=== PATIENT | male | born 1965 | race Caucasian/White ===

== ENCOUNTER → 2022-06-22 09:35 | Outpatient (CLI) | payer OTHER, MEDICAID, SELFPAY ==
--- NOTE | 2022-06-22 09:38 | DI.CT.S_ITS ---
PROCEDURE: CT SINUS SCREEN WO CON INDICATIONS: Chronic pansinusitis TECHNIQUE: Noncontrast 3.0 mm axial images acquired from the frontal sinuses to the mid-sella, with coronal and sagittal reformats. For radiation dose reduction, the following was used: automated exposure control, adjustment of mA and/or kV according to patient size. COMPARISON: None. FINDINGS: Image quality: Excellent. Maxillary Sinuses: No bony remodeling or destruction. Sinuses are clear. Ethmoid Air Cells: No bony remodeling or destruction. Sinuses are clear. Sphenoid Sinuses: No bony remodeling or destruction. Sinuses are clear. Frontal Sinuses: No bony remodeling or destruction. Sinuses are clear. Ostiomeatal Complexes: Ostiomeatal complexes are patent. No Deena cells. Miscellaneous: Visualized intra-orbital contents are normal. No vi bullosa or paradoxical turbinate curvature. Osseous nasal septal bowing to the left IMPRESSION: Leftward nasal septal deviation Approved by: Scott Alford M.D. on 06/22/2022 at 9:38
== END ==
PROVIDERS: Referring Provider Otolaryngology; Visit Provider Otolaryngology
DX: J32.4 Chronic pansinusitis (principal); J34.89 Other specified disorders of nose and nasal sinuses; G44.89 Other headache syndrome
CPT/HCPCS: 70486

== ENCOUNTER 2022-08-26 13:00 | Emergency (ER) | payer OTHER, MEDICAID, SELFPAY ==
[2022-08-26 13:30] VITALS: BP 127/76; PULSE 85; RESP 15; TEMP 36.2; O2SAT 99; BMI 28.3
[2022-08-26 14:17] LABS: COVID-19 CEPHEID 4-PLEX PCR Negative (Negative); Influenza A - CEPHEID Flu A NEGATIVE (NEGATIVE); Influenza B - CEPHEID Flu B NEGATIVE (NEGATIVE); Respiratory Syncytial Virus Negative (Negative)
--- NOTE | 2022-08-26 14:52 | ED_ITS ---
HPI - URI/Sore Throat <Primo Lan PA-C - Last Filed: 08/26/22 14:58> General Chief Complaint: Upper Respiratory Symptoms Stated Complaint: cough can't get rid off T-14 Time Seen by Provider: 08/26/22 14:12 Source: patient Mode of arrival: Ambulatory History of Present Illness HPI Narrative: 57-year-old male with past medical history asthma presents to the ED with 2 weeks of persistent cough. Patient denies fever, chills, chest pain, shortness of breath, nausea, vomiting, abdominal pain, dysuria, lightheadedness, dizziness, syncope.? Patient states that her symptoms started as a upper respiratory infection 2 weeks ago, and she is still left with this residual cough that is tiring him out. Patient also endorses intermittent wheezing for which he has been using his albuterol inhaler. Related Data Previous Rx's Medication Instructions Recorded benzonatate 200 mg capsule 200 mg PO TID PRN cough #30 caps 08/26/22 Allergies Allergy/AdvReac Type Severity Reaction Status Date / Time No Known Drug Allergies Allergy Verified 08/26/22 13:30 Review of Systems <Primo Lan PA-C - Last Filed: 08/26/22 14:58> Review of Systems ROS Unobtainable: All systems reviewed & are unremarkable except as noted in HPI and below Constitutional Constitutional: Denies chills, Denies fatigue, Denies fever(s), Denies frequent falls, Denies lethargy and Denies weakness Eyes Eyes: Denies change in vision, Denies eye discharge, Denies irritation and Denies loss of vision ENT Ears, Nose, Mouth, and Throat: Denies change in voice, Denies dizziness, Denies neck pain, Denies sore throat and Denies throat swelling Cardiovascular Cardiovascular: Denies chest pain, Denies irregular heart rhythm, Denies lightheadedness, Denies palpitations, Denies dyspnea, Denies dyspnea on exertion and Denies orthopnea Respiratory Respiratory: Reports cough, Denies dyspnea, Denies dyspnea on exertion and Denies wheezing Gastrointestinal Gastrointestinal: Denies abdominal pain, Denies change in bowel habits, Denies diarrhea, Denies nausea and Denies vomiting Genitourinary Genitourinary: Denies hematuria, Denies flank pain, Denies urinary incontinence and Denies urinary urgency Musculoskeletal Musculoskeletal: Denies back pain, Denies muscle weakness, Denies neck pain, Denies numbness and Denies tingling Integumentary/Breasts Skin/Breast: Denies pruritus, Denies erythema, Denies rash and Denies wounds Neurologic Neurologic: Denies behavioral changes, Denies confusion, Denies dizziness, Denies frequent falls, Denies loss of vision, Denies numbness, Denies tingling and Denies weakness Psychiatric Psychiatric: Denies anxiety, Denies behavioral changes, Denies confusion, Denies depression, Denies homicidal ideation and Denies suicidal ideation Endocrine Endocrine: Denies fatigue, Denies flushing and Denies palpitations Hematologic/Lymphatic Hematologic/Lymphatic: Denies easy bruising Allergic/Immunologic Allergic/Immunologic: Denies urticaria, Denies throat swelling and Denies wheezing Patient History <Primo Lan PA-C - Last Filed: 08/26/22 14:58> Social History Smoking Status: Unknown if ever smoked Smoking Status: Unknown if ever smoked alcohol intake frequency: 0-2 drinks per day Substance Use Type: marijuana Exam <Primo Lan PA-C - Last Filed: 08/26/22 14:58> Narrative Exam Narrative: General:?cooperative, healthy appearing and comfortable [facility] Head:?normal to inspection Ears:?hearing grossly normal bilaterally Nose:?external nose normal Face and sinus:?normal facial exam and sinuses nontender Mouth:?oral mucosae normal Throat:?posterior oropharynx normal Eyes General:?appearance normal, both eyes and all related structures Neck Neck:?normal visual inspection and no lymphadenopathy noted Resp Effort & Inspection:?normal respiratory effort Auscultation:?clear to auscultation bilaterally Cardio Rate:?regular rate Rhythm:?regular rhythm Neuro General:?patient alert, patient awake and patient oriented x3 Initial Vital Signs Initial Vital Signs: Vital Signs Temperature 97.2 F L 08/26/22 13:30 Pulse Rate 85 08/26/22 13:30 Respiratory Rate 15 08/26/22 13:30 Blood Pressure 127/76 08/26/22 13:30 Pulse Oximetry 99 08/26/22 13:30 Oxygen Delivery Method Room Air 08/26/22 13:30 <Carmen Lilly DO - Last Filed: 08/28/22 07:26> Initial Vital Signs Initial Vital Signs: Vital Signs Temperature 97.2 F L 08/26/22 13:30 Pulse Rate 85 08/26/22 13:30 Respiratory Rate 15 08/26/22 13:30 Blood Pressure 127/76 08/26/22 13:30 Pulse Oximetry 99 08/26/22 13:30 Oxygen Delivery Method Room Air 08/26/22 13:30 Course <Primo Lan PA-C - Last Filed: 08/26/22 14:58> Orders Ordered: ED Orders 08/26/22 13:31 Covid-19 + FLU A/B + RSV - PCR Stat Vital Signs Vital signs: Vital Signs - 8 hr 08/26/22 13:30 Temperature 97.2 F L Pulse Rate 85 Respiratory Rate 15 Blood Pressure 127/76 Pulse Oximetry 99 Oxygen Delivery Method Room Air <Carmen Lilly DO - Last Filed: 08/28/22 07:26> Orders Ordered: ED Orders 08/26/22 13:31 Covid-19 + FLU A/B + RSV - PCR Stat Vital Signs Vital signs: Vital Signs - 8 hr 08/26/22 13:30 Temperature 97.2 F L Pulse Rate 85 Respiratory Rate 15 Blood Pressure 127/76 Pulse Oximetry 99 Oxygen Delivery Method Room Air MDM - URI/Sore Throat <Primo Lan PA-C - Last Filed: 08/26/22 14:58> Lab Data Labs: Lab Results 08/26/22 Range/Units 13:31 SARS-CoV-2 (PCR) Negative (Negative) Influenza A (RT-PCR) Flu a negative (NEGATIVE) Influenza B (RT-PCR) Flu b negative (NEGATIVE) RSV (PCR) Negative (Negative) MDM Narrative Medical decision making narrative: 57-year-old male with past medical history asthma presents to the ED with 2 weeks of persistent cough. Physical exam is reassuring, lungs are clear to auscultation bilaterally, vitals within normal limits. Unlikely pneumonia. More likely acute bronchitis. Will prescribe Tessalon Perles for cough. ED return precautions were discussed with patient. Patient verbalized understanding. <Carmen Lilly DO - Last Filed: 08/28/22 07:26> Lab Data Labs: Lab Results 08/26/22 Range/Units 13:31 SARS-CoV-2 (PCR) Negative (Negative) Influenza A (RT-PCR) Flu a negative (NEGATIVE) Influenza B (RT-PCR) Flu b negative (NEGATIVE) RSV (PCR) Negative (Negative) Discharge Plan Departure Patient Disposition: Home Clinical Impression: Bronchitis Instructions: Acute Bronchitis Activity Restrictions/Additional Instructions: You were evaluated in the ED today for a persistent cough. Your physical exam was reassuring, your lungs were clear of rattles or wheezes. Your symptoms are likely due to acute bronchitis, which is a persistent cough after a upper respiratory infection that can last for 3-4 weeks. You have been prescribed Tessalon Perles for the cough. You may also take other [id number] cough medications along with it. Continue good hydration. Return to the ED if your symptoms worsen, you develop fever, chills, fatigue. Prescriptions: New benzonatate 200 mg capsule 200 mg PO TID PRN (Reason: cough) Qty: 30 0RF Referrals: Gentry Walls MD [Primary Care Provider] - Stand Alone Forms: Patient Portal/API <Carmen Lilly DO - Last Filed: 08/28/22 07:26> Cosign ED Attending Vidaature Attestation: I was immediately available in the department for consultation. Documentation has been reviewed.
== END 2022-08-26 15:04 | disposition home or self-care (01) ==
PROVIDERS: Emergency Medicine; Emergency Provider Student in an Organized Health Care Education/Training Program; PCP Family Medicine
DX: J20.9 Acute bronchitis, unspecified (principal); Z20.822 Contact with and (suspected) exposure to COVID-19
CPT/HCPCS: 0241U; 99281; 99282

== ENCOUNTER 2022-10-03 10:47 | Day surgery (SDC) | payer OTHER, MEDICAID, SELFPAY ==
[2022-09-27 15:05] VITALS: BMI 29.1
[2022-10-03] VITALS (7 sets, daily range): BP systolic 108–133; BP diastolic 68–88; PULSE 85–91; RESP 12–16; TEMP 36.3–36.6; O2SAT 91–96; BMI 29.1
[2022-10-03] MEDS: OXYMETAZOLINE NASAL SPRAY 15 ML 2 SPRAYS NASAL ×2 (11:30→13:50)
[2022-10-03] MEDS: LACTATED RINGERS 1,000 ML 42 ML IV ×2 (11:56→13:50)
--- NOTE | 2022-10-03 13:03 | PM.PREOP ---
Pre-operative Note Interval Note History & Physical reviewed/Exam performed by Physician: Yes Changes to H&P: No
--- NOTE | 2022-10-03 13:04 | P.HP_ITS ---
History of Present Illness History of Present Illness Date Patient Seen: 10/03/22 Time Patient Seen: 13:04 Chief complaint: Septoplasty and Turbinate Reduction Narrative: 57-year-old male last seen in clinic 07/30/2022 presents for septoplasty and bilateral inferior turbinate reduction under general anesthesia. He has a known 3 to 4+ left septal deviation with a normal sinus CT 06/12/2022. No interval health changes, wishes to proceed. [facility] Medical History Asthma Deviated nasal septum Nasal obstruction Nasal turbinate hypertrophy Surgical History Hx of hand surgery (2021) Hx of shoulder surgery (2020) Hx of tonsillectomy Hx of tympanostomy tubes Social History household members: spouse Smoking Status: Former smoker alcohol intake: current Meds Home Medications and Allergies Home Medications Medication Instructions Recorded Confirmed Type albuterol sulfate 90 mcg/actuation 2 puff inhalation QID PRN 09/27/22 10/03/22 History aerosol inhaler Shortness Of Breath dextroamphetamine-amphetamine 20 20 mg PO BID 09/27/22 10/03/22 History mg tablet (Adderall) Allergies Allergy/AdvReac Type Severity Reaction Status Date / Time No Known Drug Allergies Allergy Verified 10/03/22 11:28 Review of Systems Review of Systems Narrative: Negative except as listed in the HPI Exam Vital Signs (past 8 hours): - 10/03/22 11:35 Temperature 97.3 F L Pulse Rate 86 Respiratory Rate 16 Blood Pressure 133/88 Pulse Oximetry 96 Oxygen Delivery Method Room Air Oxygen Delivery Method Room Air Narrative Exam Narrative: Well-developed well-nourished, heart regular rate and rhythm without murmur, lungs clear to auscultation bilaterally Assessment & Plan Assessment & Plan narrative: Assessment: Nasal airway obstruction, septal deviation, inferior turbinate hypertrophy Plan: Following discussion of the material risks benefits complications and alternatives, the patient elected to proceed.
--- NOTE | 2022-10-03 13:05 | PM.OP.1 ---
Operative Date/Time/Diagnoses Date of procedure: 10/03/22 Time of procedure: 15:06 Pre-op diagnosis: Nasal airway obstruction, septal deviation, inferior turbinate hypertrophy Post-op diagnosis: same Procedure & Clinicians Procedure: 1. Septoplasty 2. Bilateral inferior turbinate reduction via intramural cautery Same procedure as scheduled: Yes Indications: 57 Year old with the above diagnoses incompletely managed with medical therapy presents for the above procedure. Following discussion of the material risks benefits complications and alternatives, the parents elected to proceed. Surgeon: Gaurav Michael Click Yes if Unassisted: Yes Anesthesia Type: General and Local Operative Notes Findings: 3 to 4+ left septal deviation, bony and cartilaginous, likely remote fracture with calcified cartilage and duplication in areas, difficult dissection. Perforation LEFT mid superior, small right low anterior, not contiguous. [id number]-[id number]-left inferior turbinate hypertrophy Estimated Blood Loss (mL): 30 Procedure in detail: Following identification and confirmation of consent as well as preoperative Afrin nasal spray, the patient was brought to the operating room suite and placed in the supine position. General endotracheal anesthesia was administered. I infiltrated the septum widely bilaterally with 2% lidocaine 1 100,000 epinephrine followed by temporary packing with cotton with Afrin and 4% lidocaine. Following sterile prep and drape, the packing was removed and I performed a right cass-transfixion incision, elevated the right mucoperichondrial and mucoperiosteal flap, difficult due to factors above. I disarticulated near the bony/cartilaginous junction and elevated the left mucoperiosteal flap. Deviated portions of the perpendicular plate of the ethmoid and vomer were resected. The residual quadrilateral cartilage was further straightened by trimming it inferiorly as well as reducing the maxillary crest. A 2 mm strip of cartilage paralleling the residual 1 cm dorsal and caudal strut was resected to further straighten the quadrilateral cartilage. The hemitransfixion incision was closed with interrupted 5 0 chromic followed by a running 4 0 plain gut mattress suture to reapproximate the septal flaps. At case completion, 20/1000th of an inch silastic splints were placed bilaterally, sutured anteriorly with a single 4 0 nylon. The head of each inferior turbinate had been previously infiltrated with additional local anesthetic and a 25 gauge spinal needle was used to impale the length of the turbinate, with cautery on a setting of 15 activated on slow withdrawal over 2 passes. The turbinates were then outfractured. The procedure completed, sponge and needle counts were correct and the patient was extubated in the operating room and taken to recovery room in stable condition without known complication. Complications: none Post-operative Condition: stable Disposition: same day surgery Plan for aftercare: Nasal saline every hour while awake, begin irrigations t.i.d. tomorrow if desired. Polysporin to the nostrils at all times, Tylenol alternating with Advil for pain control, oxycodone for breakthrough pain. Elevate head of bed, no nose blowing, no straining for 2 weeks. Ice directly under the nose on the upper lip has tolerated 24-48 hours at a minimum. Follow-up in 1 week for nasal splint removal.
--- NOTE | 2022-10-03 13:47 | SUR.OPER ---
Supine on padded OR bed, head on gel doughnut, arms padded and tucked at sides, legs uncrossed, safety belt at thigh, tape over blanket over lower legs .
[2022-10-03] MEDS: LIDOCAINE 2% W/EPI INJ 20 ML INJ (13:51)
[2022-10-03] MEDS: LIDOCAINE 4% SOLN 50 ML 20 ML TOP (13:52)
[2022-10-03] MEDS: BACITRACIN OINT 0.9 GM PCKT 1 APPLIC TOP (13:52)
== END 2022-10-03 15:49 | disposition home or self-care (01) ==
PROVIDERS: PCP Family Medicine; Referring Provider Otolaryngology; Visit Provider Otolaryngology
PROC: (CPT 30520; principal; 2022-10-03 12:30)
PROC: (CPT 30520; 2022-10-03 12:30)
DX: J34.2 Deviated nasal septum (principal); J34.89 Other specified disorders of nose and nasal sinuses; J34.3 Hypertrophy of nasal turbinates
CPT/HCPCS: 30520; 30802; A9270; J0330; J1100; J2405; J2704; J3010